=== PATIENT | male | born 1975 | race Caucasian/White ===

== ENCOUNTER 2022-06-21 18:03 | Emergency (ER) | payer BC ==
[2022-06-21] MEDS ORDERED: Lidocaine 1% (PF) 30 ML VIAL ONE (22:56)
[2022-06-21] MEDS ORDERED: Bupivacaine PF 0.5% 30 ML VIAL ONE (22:56)
[2022-06-21] MEDS ORDERED: CEFAZOLIN 1 GM VIAL ONE (22:57)
[2022-06-21] MEDS ORDERED: Sterile Water 10 ML ONE (22:58)
[2022-06-21] MEDS ORDERED: Boostrix 0.5 ML (Tdap) VIAL (>/=7 yrs of age) ONE (23:26)
[2022-06-21] MEDS ORDERED: Bacitracin 1 PK ONE (23:38)
== END 2022-06-22 | disposition home or self-care (01) ==
LOC: CSHERS 18:03
DX: S56.322A Laceration of extensor or abductor muscles, fascia and tendons of left thumb at forearm level, initial encounter (principal); W26.0XXA Contact with knife, initial encounter; Z23 Encounter for immunization
CPT/HCPCS: 12001; 90471; 90715; 96372; J0690; J2001; S0020